=== PATIENT | male | born 1990 | race African-American/Black ===

== ENCOUNTER 2022-11-30 20:46 | Emergency (ER) | payer OTHER ==
[2022-11-30 21:04] VITALS: BP 110/64; PULSE 65; RESP 18; TEMP 99; BMI 23.7
[2022-11-30] MEDS ORDERED: IBUPROFEN 600 MG TABLET (FP) PO ONE ×2 (21:47)
== END 2022-11-30 22:26 | disposition home or self-care (01) ==
LOC: JERFT 20:46
DX: S93.402A Sprain of unspecified ligament of left ankle, initial encounter (principal); X50.1XXA Overexertion from prolonged static or awkward postures, initial encounter; Y93.67 Activity, basketball
CPT/HCPCS: 73610-TC-LT-FY; 99283-25